=== PATIENT | male | born 1995 | race Caucasian/White ===

== ENCOUNTER 2023-03-07 05:45 | Emergency (ER) | payer OTHER ==
[2023-03-07 06:18] LABS: BASOPHILS ABSOLUTE AUTO 0.06 K/uL (0.00-0.20); BASOPHILS PERCENT AUTO 1.2 % (0.0-2.0); EOSINOPHILS ABSOLUTE AUTO 0.05 K/uL (0.00-0.50); HEMATOCRIT 44.8 % (39.0-49.0); HEMOGLOBIN 15.3 g/dL (13.1-16.8); LYMPHOCYTES ABSOLUTE AUTO 2.02 K/uL (0.50-3.50); LYMPHOCYTES PERCENT AUTO 41.4 % (10.0-50.0); MEAN CORPUSCULAR HEMOGLOBIN 30.2 pg (28.2-33.3); MEAN CORPUSCULAR HGB CONC 34.2 g/dL (31.7-36.0); MEAN CORPUSCULAR VOLUME 88.5 fL (84.0-98.0); MONOCYTES ABSOLUTE AUTO 0.56 K/uL (0.00-1.00); MONOCYTES PERCENT AUTO 11.5 % (2.0-14.0); NEUTROPHILS ABSOLUTE AUTO 2.19 K/uL (1.40-7.00); NEUTROPHILS PERCENT AUTO 44.9 % (45.0-80.0); PLATELET COUNT,PLT 286 K/uL (150-350); RED BLOOD CELL COUNT 5.06 M/uL (4.33-5.41); RED CELL DISTRIBUTION WIDTH 12.9 % (11.2-14.1); WHITE BLOOD CELL COUNT,WBC 4.9 K/uL (4.0-10.2)
[2023-03-07 06:39] LABS: ALANINE AMINOTRANSFERASE,ALT 89 U/L (12-78); ALBUMIN 4.4 g/dL (3.4-5.0); ALKALINE PHOSPHATASE 71 IU/L (46-116); ANION GAP 12.3 meq/L (7-15); ASPARTATE AMNIOTRANSFERASE,AST 31 U/L (15-37); BILIRUBIN TOTAL 0.7 mg/dL (0.2-1.0); BLOOD UREA NITROGEN,BUN 23 mg/dL (7-18); CALCIUM 8.9 mg/dL (8.5-10.1); CARBON DIOXIDE,CO2 25.7 mmol/L (21.0-32.0); CHLORIDE,CL 103 mmol/L (98-107); CREATININE 0.89 mg/dL (0.51-1.17); GLUCOSE RANDOM 97 mg/dL (70-99); POTASSIUM,K 4.1 mmol/L (3.5-5.1); PROTEIN TOTAL,TP 7.7 g/dL (6.4-8.2); SODIUM,NA 141 mmol/L (136-145)
[2023-03-07 06:40] LABS: ESTIMATED GFR 122 mL/min (>=60)
[2023-03-07] MEDS: Ketorolac 30 MG/ML SDV IM ONE (07:20)
[2023-03-07] MEDS: predniSONE 20 MG Tab PO ONE (07:20)
[2023-03-07] MEDS: Take Home: predniSONE 20 MG, 4 Tab Pack PO ONE (07:21)
== END 2023-03-07 08:45 | disposition home or self-care (01) ==
LOC: LL.ED 05:45
DX: M54.50 Low back pain, unspecified (principal)
CPT/HCPCS: 36415; 72131; 80053; 85025; 96372; 99284; A9270-GY; J1885; J7512

== ENCOUNTER 2023-03-10 18:57 | Emergency (ER) | payer OTHER ==
[2023-03-10 20:11] VITALS: BP 122/80; PULSE 73
== END 2023-03-10 19:48 | disposition home or self-care (01) ==
LOC: LL.ED 18:57
DX: S39.92XA Unspecified injury of lower back, initial encounter (principal); X50.1XXA Overexertion from prolonged static or awkward postures, initial encounter
CPT/HCPCS: 99283